=== PATIENT | male | born 1975 | race Caucasian/White ===

== ENCOUNTER → 2021-05-08 | Outpatient (CLI) | payer OTHER | LOC: LAB 08:02 | PROVIDERS: ATTEND Urology | DX: N40.0 Benign prostatic hyperplasia without lower urinary tract symptoms (principal); E29.1 Testicular hypofunction | CPT/HCPCS: 36415; 84153; 84154; 84402; 84403 ==

== ENCOUNTER → 2021-08-21 | Outpatient (CLI) | payer OTHER | LOC: LAB 10:22 | PROVIDERS: ATTEND Urology | DX: E29.1 Testicular hypofunction (principal) | CPT/HCPCS: 36415; 84402; 84403 ==